=== PATIENT | female | born 1985 | race African-American/Black ===

== ENCOUNTER 2024-11-10 22:12 | Emergency (ER) | payer BC, SELFPAY ==
[2024-11-10 22:19] VITALS: BP 137/91
[2024-11-10] MEDS: DECADRON 10 MG PO (23:51)
--- NOTE | 2024-11-11 | ED.GENMED ---
History of Present Illness
General
Chief Complaint: Skin Problem
Source: patient
Exam Limitations: none
Time Seen by Provider: 11/10/24 23:21
Nursing documentation reviewed up to this point in time: agreed with
History of Present Illness
History of Present Illness:
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 Denies any trouble swallowing or breathing any abdominal pain or additional concerns.
Past History
Past History
ED Past Medical History: None; Negative Asthma, HTN, Hypercholesterolemia or NIDDM
ED Past Surgical History: None
Social History
Tobacco: Non-smoker
Alcohol: None
Personal:
Living: with family
Review of Systems
Review of Systems
Allergies reviewed?: Yes
All Other Systems: ROS reviewed and negative except as documented in HPI and ROS
Phy Exam
Physical Exam
Physical Exam:
GENERAL: Alert , in no apparent distress
EYE: pupils equal and reactive
NECK: Supple, no significant adenopathy.
ENT: o/p clr, mmm.
CARDIAC: Regular rate and rhythm .
LUNGS: Clear breath sounds bilaterally, no acute respiratory distress, no wheezes/rales/rhonchi
ABDOMEN: Soft, without focal tenderness, no r/g, no cvat
NEUROLOGICAL: Alert and oriented, no focal neuro deficits
SKIN: No tenderness to palpation. Warm and dry, skin intact.
MUSCULOSKELETAL: No edema, well perfused.
PSYCH: Normal and appropriate interaction.
Rash to bilateral forearms with erythematous base grouped vesicles
Course
Orders/Labs/Results
Orders:
Orders
11/10/24 23:43
Dexamethasone [Decadron] 10 mg PO NOW STA
Vital Signs
Initial and Last Documented VS:
Initial Vital Signs
Temp Pulse Resp BP Pulse Ox
98.6 F 75 18 137/91 98
11/10/24 22:19 11/10/24 22:19 11/10/24 22:19 11/10/24 22:19 11/10/24 22:19
Last Documented Vital Signs
Temp Pulse Resp BP Pulse Ox
98.6 F 75 18 137/91 98
11/10/24 22:19 11/10/24 22:19 11/10/24 22:19 11/10/24 22:19 11/10/24 22:19
MDM/Problems Addressed
MDM/Problems Addressed:
39-year-old female presenting to the emergency department today with concerns of rash to bilateral forearms. Rash has an erythematous base with grouped vesicles. Vital signs are normal. Rash appears to be consistent with likely delayed
hypersensitivity skin reaction. Plan for treatment with oral steroids. Otherwise stable for discharge return precautions given.
*Pulse Oximetry
SaO2: 98
Oxygen Mode of Delivery: Room air
Patient hypoxic: no (98)
*Critical Care Note
Total Time (30-74mins, 75-104mins- exclusive of procedures): Not Applicable
ED Attending Note
-
Portions of this chart may have been created with voice recognition software.� Occasional wrong word or��sound alike� substitutions may have occurred due to the inherent limitations of voice recognition software.
Discharge Plan
Departure
Patient Disposition: Home (Routine Discharge)
Date of Disposition: 11/11/24
Time of Disposition: 00:06
Patient with high blood pressure during this ER visit?: No
Condition: Good
Covid-19: Not Applicable
Discharge Problem:
Contact dermatitis
Instructions: Poison christal, poison oak, and poison sumac
Prescriptions:
New
prednisone 10 mg Tablet
See Rx Instructions .ROUTE .COMPLEX Qty: 30 0RF
Rx Instructions:
Take By Mouth:
40 mg daily x3 days, 30 mg daily x3 days,
20 mg daily x3 days, 10 mg daily x3 days.
No Action
fluticasone propionate 1 SPRAY spray,suspension
1 spray intranasal BID
Omeprazole
1 tab PO BID
Patient Comments:
03/30/21 - per pt, her doctor recently increased mg but pt does not know how much she takes
prednisone 50 mg tablet
50 mg PO DAILY 4 Days Qty: 4 0RF
cyclobenzaprine 10 mg tablet
10 mg PO BID PRN (Reason: muscle spasm) Qty: 7 0RF
Referrals:
Chilo Moody DO [Family Provider, Internal Medicine]
Activity Restrictions/Additional Instructions:
You came to the emergency department today with concerns of a rash. Please take the prescribed prednisone and follow-up closely with the primary care doctor. Return for any worsening, new or concerning symptoms.
Interventions
Interventions:
*Risk Screen - Suicide Last Done: 11/10/24 22:24
*Neglect/Abuse Screening Last Done: 11/10/24 22:24
ED- Pulmonary Assessment Last Done: 11/10/24 23:54
ED-Skin Assessment Last Done: 11/10/24 23:53
Discharge Date and Time
Print Language: SLOVENIAN
== END 2024-11-11 00:14 | disposition home or self-care (01) ==
LOC: EMR 22:12
PROVIDERS: EMERGENCY PHYSICIAN Emergency Medicine; FAMILY PHYSICIAN Internal Medicine
DX: L25.9 Unspecified contact dermatitis, unspecified cause (principal)
CPT/HCPCS: 99283